=== PATIENT | male | born 1975 | race Two or more races ===

== ENCOUNTER 2017-06-01 10:21 | Emergency (ER) | payer SELFPAY ==
[2017-06-01 10:27] VITALS: BP 156/94; PULSE 94; TEMP 99; BMI 27.4
--- NOTE | 2017-06-01 11:03 | PDOC ---
History of Present Illness - General Chief Complaint: Abscess Boil Stated Complaint: ABSCESS ON LT FOOT Time Seen by Provider: 06/01/17 10:39 History Source: Patient Exam Limitations: No Limitations - History of Present Illness Initial Comments: 06/01/17 10:57 Patient is a 42-year-old male history of [id number] diabetes presents for evaluation of painful, bleeding lesion to left lateral lower leg. Patient reports that he had dry skin, rash to left lower leg was seen by his PMD and told it was just a rash was also diagnosed with diabetes at the same time. Since developed a hardened, small opening to left lower leg which is draining blood with no pus while he was shoveling today. Which causes pain which prompted him to come to the emergency room. Bleeding upon arrival. Past Medical History: NIDDM Allergies: No known allergies Medications: Metformin Family History: Non-contributory Social History: Denies smoking, alcohol use, or IVDU Review of Systems GENERAL/CONSTITUTIONAL: [No fever or chills. No weakness. No weight change.] HEAD, EYES, EARS, NOSE AND THROAT: [No change in vision. No ear pain or discharge. No sore throat. ] CARDIOVASCULAR: [No chest pain or shortness of breath.] RESPIRATORY: [No cough, wheezing, or hemoptysis.] GASTROINTESTINAL: [No nausea, vomiting, diarrhea or constipation. No rectal bleeding.] GENITOURINARY: [No dysuria, frequency, or change in urination.] MUSCULOSKELETAL: [No joint or muscle swelling or pain. No neck or back pain.] SKIN: [No rash or easy bruising. There is a hardened area with no erythema or induration to left lateral lower leg with small opening, nonraised] Physical Exam: GENERAL: [The patient is awake, alert, and fully oriented, in no acute distress. ] HEAD: [Normal with no signs of trauma.] EYES: [Pupils equal, round and reactive to light, extraocular movements intact, sclera anicteric, conjunctiva clear.] ENT: [Ears normal, nares patent, oropharynx clear without exudates. Moist mucous membranes. No uvula deviation] NECK: [Normal range of motion, supple without lymphadenopathy, JVD, or masses.] LUNGS: [Breath sounds equal, clear to auscultation bilaterally. No wheezes, and no crackles.] HEART: [Regular rate and rhythm, normal S1 and S2 without murmur, rub or gallop. ] ABDOMEN: [Soft, nontender, normoactive bowel sounds. No guarding, no rebound. No masses. No bruising or abrasions] MUSCULOSKELETAL: [Normal range of motion, mild edema localized around opening to left lower lateral leg with no erythema . No clubbing or cyanosis. No cords , erythema, or tenderness. No CVA Tenderness with fist.] NEUROLOGICAL: [Cranial nerves II through XII grossly intact. Normal speech, normal gait.] SKIN: [Warm, Dry, normal turgor, no rashes or lesions noted. Painful, hardened area mildly raised to left lateral lower leg with small circular opening no drainage or bleeding noted] Past History - Past Medical History Allergies/Adverse Reactions: Allergies Allergy/AdvReac Type Severity Reaction Status Date / Time No Known Allergies Allergy Verified 06/01/17 10:24 Home Medications: Ambulatory Orders Cephalexin Monohydrate [Keflex -] 500 mg PO Q6H #40 capsule 06/01/17 Mupirocin Cream [Bactroban 2% Cream -] 1 applic TP BID #1 tube 06/01/17 COPD: No Diabetes: Yes - Suicide/Smoking/Psychosocial Hx Smoking History: Never smoked Information on smoking cessation initiated: No Hx Alcohol Use: No Drug/Substance Use Hx: No Substance Use Type: None *Physical Exam - Vital Signs Last Vital Signs Temp Pulse Resp BP Pulse Ox 99.0 F 94 H 18 156/94 100 06/01/17 10:24 06/01/17 10:24 06/01/17 10:24 06/01/17 10:24 06/01/17 10:24 Medical Decision Making - Medical Decision Making 06/01/17 11:02 A/P: Patient here for patient here for evaluation of left lateral lower leg wound, area is hardened with no fluctuance there is a small quarter centimeter opening, circular to middle of area, patient reports hitting area with shallow there is no active bleeding no drainage. Abscess versus venous stasis ulcer I will discharge patient home on Keflex and Bactrim, which strict follow-up. Patient will follow up at clinic *DC/Admit/Observation/Transfer Diagnosis at time of Disposition: Wound of lower extremity Qualifiers: Encounter type: initial encounter Laterality: left Qualified Code(s): S82.225W - Unspecified open wound, left lower leg, initial encounter - Discharge Dispostion Disposition: HOME Condition at time of disposition: Good Admit: No - Prescriptions Prescriptions: Cephalexin Monohydrate [Keflex -] 500 mg PO Q6H #40 capsule Mupirocin Cream [Bactroban 2% Cream -] 1 applic TP BID #1 tube - Referrals Referrals: Wound, Care [Other] [facility] [Provider Group] - Patient Instructions Additional Instructions: Please monitor area for any increased redness swelling or signs of infection recommend follow-up at wound care, also follow up with PMD in 1 week. Antibiotics and cream as ordered. - Post Discharge Activity Forms/Work/School Notes: Back to Work
== END 2017-06-01 11:14 | disposition home or self-care (01) ==
LOC: JERFT 10:21
DX: S81.802A Unspecified open wound, left lower leg, initial encounter (principal); E11.9 Type 2 diabetes mellitus without complications; Z79.84 Long term (current) use of oral hypoglycemic drugs; X58.XXXA Exposure to other specified factors, initial encounter; Y93.89 Activity, other specified; Y92.89 Other specified places as the place of occurrence of the external cause
CPT/HCPCS: 99281-25